=== PATIENT | female | born 1985 | race Caucasian/White ===

== ENCOUNTER 2016-06-18 00:32 | Emergency (ER) | payer MEDICAID ==
[2016-06-18] MEDS ORDERED: MOTRIN PO ONE (04:52)
--- NOTE | 2016-06-18 04:57 | Emergency Department Report ---
ED ENT HPI - General Chief complaint: Earache Stated complaint: EAR PAIN, SORE THROAT Time Seen by Provider: 06/18/16 04:26 Source: patient Mode of arrival: Ambulatory Limitations: Language Barrier - History of Present Illness Initial comments: This is a 31-year-old female that presents with right ear, sore throat, and right facial pain for 2 days. Patient denies fever. Denies nausea or vomiting. Denies shortness of breath or chest pain. Patient does not seem toxic or ill in appearance. Patient associated symptoms includes aching of the right ear and face. Patient radiated pain as a 9 out of 10. Patient denies being incontinent with anyone sick. Patient denies any drug allergies. MD complaint: sore throat, ear pain -: Gradual, days(s) (2) Location: R ear Severity: moderate Severity scale (0 -10): 9 Quality: aching Consistency: constant Improves with: none Worsens with: none Associated Symptoms: sore throat. denies: fever, cough, gum swelling, toothache , pain with swallowing, tinnitus, hearing loss, discharge from ear, rhinorrhea - Related Data Previous Rx's Medication Instructions Recorded Last Taken Type Amoxicillin 500 mg PO BID 10 Days 06/18/16 Unknown Rx Ibuprofen [Motrin 600 MG tab] 600 mg PO Q8H PRN 7 Days 06/18/16 Unknown Rx Allergies Allergy/AdvReac Type Severity Reaction Status Date / Time No Known Allergies Allergy Verified 07/22/14 15:51 ED Dental HPI - General Chief complaint: Earache Stated complaint: EAR PAIN, SORE THROAT Time Seen by Provider: 06/18/16 04:26 Source: patient Mode of arrival: Ambulatory Limitations: Language Barrier - Related Data Previous Rx's Medication Instructions Recorded Last Taken Type Amoxicillin 500 mg PO BID 10 Days 06/18/16 Unknown Rx Ibuprofen [Motrin 600 MG tab] 600 mg PO Q8H PRN 7 Days 06/18/16 Unknown Rx Allergies Allergy/AdvReac Type Severity Reaction Status Date / Time No Known Allergies Allergy Verified 07/22/14 15:51 ED Review of Systems ROS: Stated complaint: EAR PAIN, SORE THROAT Other details as noted in HPI Constitutional: denies: chills, fever Eyes: denies: eye pain, eye discharge, vision change ENT: denies: ear pain, throat pain Respiratory: denies: cough, shortness of breath, wheezing Cardiovascular: denies: chest pain, palpitations Endocrine: no symptoms reported Gastrointestinal: denies: abdominal pain, nausea, diarrhea Genitourinary: denies: urgency, dysuria, discharge Musculoskeletal: denies: back pain, joint swelling, arthralgia Skin: denies: rash, lesions Neurological: denies: headache, weakness, paresthesias Psychiatric: denies: anxiety, depression Hematological/Lymphatic: denies: easy bleeding, easy bruising ED Past Medical Hx - Past Medical History Previous Medical History?: Yes Additional medical history: Polycystic Ovarian Syndrome - Surgical History Past Surgical History?: Yes Additional Surgical History: - Social History Smoking Status: Never Smoker Substance Use Type: None - Medications Home Medications: Home Medications Medication Instructions Recorded Confirmed Last Taken Type Amoxicillin 500 mg PO BID 10 Days 06/18/16 Unknown Rx Ibuprofen [Motrin 600 MG tab] 600 mg PO Q8H PRN 7 Days 06/18/16 Unknown Rx ED Physical Exam - General Limitations: Language Barrier General appearance: alert, in no apparent distress - Head Head exam: Present: atraumatic, normocephalic - Eye Eye exam: Present: normal appearance, PERRL, EOMI - ENT ENT exam: Present: mucous membranes moist. Absent: TM's normal bilaterally ( bulging left TM with erythema) - Expanded ENT Exam Expanded TM/Canal exam: Erythema: Right TM, Bulging: Right TM, Effusion: Left TM, Perforation: Left TM, Loss of Landmarks: Left TM, Foreign Body: Left TM, Cerumen Impaction: Left TM, Mastoid Tenderness: Left TM, Canal Discharge: Left TM, Canal Tenderness: Left TM Mouth exam: Present: normal external inspection, tongue normal. Absent: drooling, trismus, muffled voice, tongue elevation, laceration Teeth exam: Present: normal inspection Throat exam: Positive: tonsillar erythema. Negative: tonsillomegaly, tonsillar exudate - Neck Neck exam: Present: normal inspection - Respiratory Respiratory exam: Present: normal lung sounds bilaterally. Absent: respiratory distress - Cardiovascular Cardiovascular Exam: Present: regular rate, normal rhythm. Absent: systolic murmur, diastolic murmur, rubs, gallop - GI/Abdominal GI/Abdominal exam: Present: soft, normal bowel sounds - Extremities Exam Extremities exam: Present: normal inspection - Back Exam Back exam: Present: normal inspection - Neurological Exam Neurological exam: Present: alert, oriented X3 - Psychiatric Psychiatric exam: Present: normal affect, normal mood - Skin Skin exam: Present: warm, dry, intact, normal color. Absent: rash ED Course Vital Signs 06/18/16 00:47 Temperature 98.2 F Pulse Rate 94 H Respiratory 20 Rate Blood Pressure 114/74 O2 Sat by Pulse 99 Oximetry ED Medical Decision Making - Medical Decision Making Ed course: A 31-year-old female that presents with pharyngitis and otitis media 1- patient received ibuprofen 600 mg by mouth in the ED 2- I instructed the patient to take full course of antibiotics as prescribed and increase rest and fluids 3- I also instructed the patient that this can be contagious and to wear a mask and close proximity of other people 4- at the time of discharge the patient did not seem toxic or ill.. No signs of distress noted. 5- patient received amoxicillin 500 mg by mouth twice a day for 10 days at the time of discharge. 6- patient agrees with discharge plan and treatment. No further questions noted by the patient. Critical care attestation.: If time is entered above; I have spent that time in minutes in the direct care of this critically ill patient, excluding procedure time. ED Disposition Clinical Impression: Otitis media Qualifiers: Otitis media type: unspecified Laterality: right Chronicity: unspecified Qualified Code(s): H66.91 - Otitis media, unspecified, right ear Pharyngitis Qualifiers: Pharyngitis/tonsillitis etiology: unspecified etiology Qualified Code(s): J02.9 - Acute pharyngitis, unspecified Disposition: DISCHARGED TO HOME OR SELFCARE Is pt being admited?: No Does the pt Need Aspirin: No Condition: Stable Instructions: Pharyngitis (ED), Otitis Media (ED) Additional Instructions: Follow-up with the primary care doctor in 3-5 days Take full course of antibiotics as prescribed If symptoms worsen report back to emergency room Prescriptions: Amoxicillin 500 mg PO BID 10 Days Ibuprofen [Motrin 600 MG tab] 600 mg PO Q8H PRN 7 Days PRN Reason: Pain Referrals: PRIMARY CARE, [Primary Care Provider] - 3-5 Days [facility] [Outside] - 3-[address] [facility] [Outside] - 3-5 Days Forms: Work/School Release Form(ED)
[2016-06-18 06:27] VITALS: BP 109/73
== END 2016-06-18 06:27 | disposition home or self-care (01) ==
LOC: ED 00:32
DX: H66.91 Otitis media, unspecified, right ear (principal); J02.9 Acute pharyngitis, unspecified; E28.2 Polycystic ovarian syndrome
CPT/HCPCS: 99282

== ENCOUNTER 2020-07-15 21:25 | Emergency (ER) | payer SELFPAY ==
[2020-07-15 22:11] VITALS: BP 103/66
--- NOTE | 2020-07-15 23:13 | XRay Report ---
CHEST 2 VIEWS 2244 INDICATION / CLINICAL INFORMATION: CHEST TIGHTNESS COMPARISON: None available. FINDINGS: SUPPORT DEVICES: None. HEART / MEDIASTINUM: No significant abnormality. LUNGS / PLEURA: No significant pulmonary or pleural abnormality. No pneumothorax. ADDITIONAL FINDINGS: No significant additional findings. IMPRESSION: No significant acute abnormality Signer Name: Miles Webber MD Signed: 07/15/2020 11:08 PM Workstation Name: [id number]
[2020-07-16] MEDS ORDERED: SODIUM CHLORIDE 0.9% 1000 ML 1,000 ML IV ONE (01:07)
[2020-07-16] MEDS ORDERED: KETOROLAC 30 MG/1 ML INJ IV STA (01:07)
[2020-07-16] MEDS ORDERED: diphenhydrAMINE 50 MG/ML VIAL IV STA (01:07)
[2020-07-16 01:32] LABS: Basophils % (Auto) 0.3 % (0.0-1.8); Eosinophils % (Auto) 0.1 % (0.0-4.3); Hematocrit 45.4 % (30.3-42.9); Hemoglobin 15.2 gm/dl (10.1-14.3); Lymphocytes # (Auto) 0.6 K/mm3 (1.2-5.4); Lymphocytes % (Auto) 6.8 % (13.4-35.0); Mean Corpuscular HGB Conc 34 % (30-34); Mean Corpuscular Volume 98 fl (79-97); Monocytes # (Auto) 0.3 K/mm3 (0.0-0.8); Monocytes % (Auto) 3.8 % (0.0-7.3); Platelet Count 280 K/mm3 (140-440); Red Blood Count 4.63 M/mm3 (3.65-5.03); Red Cell Distribution Width 13.2 % (13.2-15.2)
--- NOTE | 2020-07-16 01:38 | Emergency Department Report ---
<ANEL SOLIS - Last Filed: 07/16/20 01:05> ED General Adult HPI - General Chief complaint: Pain General Stated complaint: EAR PAIN/THROAT PAIN/BODYACHE/HEART BEATING FAST Time Seen by Provider: 07/16/20 01:01 Source: patient Mode of arrival: Ambulatory Limitations: No Limitations - Related Data Previous Rx's Medication Instructions Recorded Last Taken Type Amoxicillin 500 mg PO BID 10 Days capsule 06/18/16 Unknown Rx Ibuprofen [Motrin 600 MG tab] 600 mg PO Q8H PRN 7 Days tablet 06/18/16 Unknown Rx Amoxicillin [Amoxicillin TAB] 875 mg PO BID #20 tablet 07/16/20 Unknown Rx Chlorhexidine Gluconate [Hibiclens] 10 ml TP BID #240 liquid 07/16/20 Unknown Rx Lidocaine Viscous 2% 5 ml MM Q3H PRN #120 udc 07/16/20 Unknown Rx Allergies Allergy/AdvReac Type Severity Reaction Status Date / Time No Known Allergies Allergy Verified 07/22/14 15:51 ED Review of Systems Comment: All other systems reviewed and negative ED Past Medical Hx - Past Medical History Previous Medical History?: Yes Additional medical history: Polycystic Ovarian Syndrome - Surgical History Additional Surgical History: - Social History Smoking Status: Never Smoker Substance Use Type: None - Medications Home Medications: Home Medications Medication Instructions Recorded Confirmed Last Taken Type Amoxicillin 500 mg PO BID 10 Days capsule 06/18/16 Unknown Rx Ibuprofen [Motrin 600 MG tab] 600 mg PO Q8H PRN 7 Days tablet 06/18/16 Unknown Rx Amoxicillin [Amoxicillin TAB] 875 mg PO BID #20 tablet 07/16/20 Unknown Rx Chlorhexidine Gluconate [Hibiclens] 10 ml TP BID #240 liquid 07/16/20 Unknown Rx Lidocaine Viscous 2% 5 ml MM Q3H PRN #120 udc 07/16/20 Unknown Rx ED Physical Exam - General Limitations: No Limitations General appearance: alert, in no apparent distress - Head Head exam: Present: atraumatic, normocephalic - Eye Eye exam: Present: normal appearance - ENT ENT exam: Present: mucous membranes moist - Neck Neck exam: Present: normal inspection - Respiratory Respiratory exam: Present: normal lung sounds bilaterally. Absent: respiratory distress - Cardiovascular Cardiovascular Exam: Present: regular rate, normal rhythm. Absent: systolic murmur, diastolic murmur, rubs, gallop - GI/Abdominal GI/Abdominal exam: Present: soft, normal bowel sounds - Extremities Exam Extremities exam: Present: normal inspection - Back Exam Back exam: Present: normal inspection - Neurological Exam Neurological exam: Present: alert, oriented X3 - Psychiatric Psychiatric exam: Present: normal affect, normal mood - Skin Skin exam: Present: warm, dry, intact, normal color. Absent: rash ED Disposition Clinical Impression: AOM (acute otitis media) Qualifiers: Otitis media type: serous Laterality: bilateral Recurrence: non-recurrent Qualified Code(s): H65.03 - Acute serous otitis media, bilateral Disposition: - TO HOME OR SELFCARE Condition: Stable Instructions: Otitis Media, Adult, [id number] Additional Instructions: follow up with your doctor in 2-3 days, return to emergency if symptoms worsen. Prescriptions: Amoxicillin [Amoxicillin TAB] 875 mg PO BID #20 tablet Chlorhexidine Gluconate [Hibiclens] 10 ml TP BID #240 liquid Lidocaine Viscous 2% 5 ml MM Q3H PRN #120 udc PRN Reason: Pain, Moderate (4-6) Referrals: PRIMARY MD ADRIANA [Primary Care Provider] - 3-5 Days WILSON PARKS MD [Staff Physician] - 3-5 Days Forms: Work/School Release Form(ED) <DEVEN MEJIA - Last Filed: 07/16/20 04:54> ED Review of Systems ROS: Stated complaint: EAR PAIN/THROAT PAIN/BODYACHE/HEART BEATING FAST Other details as noted in HPI ED Course Vital Signs 07/15/20 07/16/20 22:05 00:55 Temperature 99.3 F Pulse Rate 131 H 122 H Respiratory 18 18 Rate Blood Pressure 103/66 [Right] O2 Sat by Pulse 100 99 Oximetry ED Medical Decision Making - Lab Data Result diagrams: 07/16/20 01:24 07/16/20 01:24 Labs 07/16/20 07/16/20 01:24 01:24 WBC 8.2 RBC 4.63 Hgb 15.2 H Hct 45.4 H MCV 98 H MCH 33 H MCHC 34 RDW 13.2 Plt Count 280 Lymph % (Auto) 6.8 L [place] % (Auto) 3.8 Eos % (Auto) 0.1 Baso % (Auto) 0.3 Lymph # (Auto) 0.6 L [place] # (Auto) 0.3 Eos # (Auto) 0.0 Baso # (Auto) 0.0 Seg Neutrophils % 89.0 H Seg Neutrophils # 7.3 Sodium 138 Potassium 3.7 Chloride 100.7 Carbon Dioxide 25 Anion Gap 16 BUN 7 Creatinine 0.8 Estimated GFR > 60 BUN/Creatinine Ratio 9 Glucose 95 Calcium 9.3 - Radiology Data Radiology results: report reviewed, image reviewed Fluoro Time In Minutes: CHEST 2 VIEWS 2244 INDICATION / CLINICAL INFORMATION: CHEST TIGHTNESS COMPARISON: None available. FINDINGS: SUPPORT DEVICES: None. HEART / MEDIASTINUM: No significant abnormality. LUNGS / PLEURA: No significant pulmonary or pleural abnormality. No pneumothorax. ADDITIONAL FINDINGS: No significant additional findings. IMPRESSION: No significant acute abnormality Signer Name: Miles Webber MD Signed: 07/15/2020 11:08 PM Workstation Name: [id number] Transcribed By: KACEY Dictated By: Miles Webber MD Electronically Authenticated By: Miles Webber MD Signed Date/Time: 07/15/202307 DD/ 07 TD/TT: - Medical Decision Making Symptoms improved heart rate less than 100 at this time. Plan DC to home, pat ient to follow-up with primary care in 2 to 3 days. Patient verbalized agreement and understanding with discharge plan. Patient DC'd home in stable condition at this time. Critical care attestation.: If time is entered above; I have spent that time in minutes in the direct care of this critically ill patient, excluding procedure time. ED Disposition Is pt being admited?: No Does the pt Need Aspirin: No
[2020-07-16 01:51] LABS: BUN/Creatinine Ratio 9; Blood Urea Nitrogen 7 mg/dL (7-17); Calcium 9.3 mg/dL (8.4-10.2); Hemolysis Index 3
--- NOTE | 2020-07-16 14:45 | Electrocardiograph Report ---
[facility] Test Date: 2020-07-15 Test Time: 22:09:55 Pat Name: GAMALIEL GALLOWAY Department: Room: Gender: F Dining Room Host/Hostess: HANANE : 1985 Requested By: LORI COUCH Order Number: [id number] Reading MD: Kalen Leach Measurements Intervals [place] Rate: 120 P: 43 DC: 167 QRS: 33 QRSD: 75 T: 48 QT: 291 QTc: 412 Interpretive Statements Sinus tachycardia Left atrial enlargement No previous ECG available for comparison Electronically Signed On 07-16-2020 14:44:37 EDT by Kalen Leach
== END 2020-07-16 05:30 | disposition home or self-care (01) ==
LOC: ED 21:25
DX: H66.93 Otitis media, unspecified, bilateral (principal); Z98.890 Other specified postprocedural states; Z79.899 Other long term (current) drug therapy
CPT/HCPCS: 36415; 71046; 80048; 85025; 93005; 96361; 96374; 96375; 99284; J1200; J1885; J7030